=== PATIENT | female | born 1955 | race Caucasian/White ===

== ENCOUNTER 2021-08-04 12:55 | Emergency (ER) | payer OTHER ==
[~2021-08-04] VITALS: Ht 160 cm; Wt 73.0 kg
[~2021-08-04 12:55] MED LIST: NEXIUM; TOPUD
[2021-08-04] MEDS ORDERED: IBUPROFEN 400MG TABLET PO ONE (16:30)
[2021-08-04] MEDS ORDERED: ACETAMINOPHEN 325MG TABLET PO ONE (16:30)
[2021-08-04] MEDS ORDERED: TOPUD PO (16:41)
[2021-08-04] MEDS ORDERED: IBUP-2028 MT (16:42)
[2021-08-04] MEDS ORDERED: LIDO1ADH23 TP (16:43)
[2021-08-04 16:45] VITALS: BP 165/92
== END 2021-08-04 17:00 | disposition home or self-care (01) ==
LOC: ER 12:55
DX: M25.561 Pain in right knee (principal); I10 Essential (primary) hypertension; M19.90 Unspecified osteoarthritis, unspecified site
CPT/HCPCS: 73562; 99283